=== PATIENT | female | born 1975 | race Two or more races ===

== ENCOUNTER → 2017-08-13 06:38 | Outpatient (CLI) | payer OTHER ==
[~2017-08-13 06:38] MED LIST: AMBIEN10 MG PO; ANAPROX275 MG PO; BENZONATATE100 MG PO; CATAFLAM50 MG PO; CEFTIN250 MG PO; COUMADIN4 MG; DECADRON P4 MG/ML-30 IH; FLONASE16 GM NS; FOLIC ACID1 MG; FOLIC ACID1 MG PO; GILTUSS TR TAB1 EACH PO; IMODIUM A-D2 MG PO; KETO10TA2 PO; LASIX20 MG PO; LODINE200 MG PO; LODINE500 MG PO; LOTRISONE CREAM45 GM TP; MOM30 ML PO; NEURONTIN300 MG PO; ORPH100T PO; PANTOPRAZOLE SO40 MG PO; PEPCID40 MG PO; PREDNISONE10 MG PO; PRINIVIL10 MG; PYRIDIUM DS200 MG PO; ROBAXIN-750750 MG PO; ROBAXIN500 MG PO; SYNTHROID200 MCG; SYNTHROID200 MCG PO; TOPROL 25 MG PO; TOPROL XL25 MG PO; TOPROL XL50 M1 PO; TORADOL60 MG IM; TRAMADOL HCL-AP1 TAB PO; Tussi-Organidin Dm-S PO; ULTRACET PO; URIN D.S. TABLE1 TAB PO; VOLTAREM PO; XOPENEX0.63 MG/3 IH; ZANTAC300 MG PO; ZOCOR20 MG PO; ZOFRAN4 MG PO; ZYRTEC10 MG PO
== END | disposition home or self-care (01) ==
LOC: LAB 06:38
DX: G96.0 Cerebrospinal fluid leak (principal)

== ENCOUNTER 2017-08-17 07:26 | Outpatient (CLI) | payer OTHER | END 2017-08-17 07:33 | disposition home or self-care (01) | LOC: RAD 07:26 | DX: G96.0 Cerebrospinal fluid leak (principal) ==

== ENCOUNTER 2017-08-17 08:13 | Outpatient (CLI) | payer OTHER | END 2017-08-17 08:19 | disposition home or self-care (01) | LOC: LAB 08:13 | DX: G96.0 Cerebrospinal fluid leak (principal) ==

== ENCOUNTER 2017-08-24 19:03 | Emergency (ER) | payer OTHER ==
[~2017-08-24] VITALS: Ht 162.6 cm; Wt 77.1 kg
== END 2017-08-24 22:09 | disposition home or self-care (01) ==
LOC: ER 19:03
DX: J11.1 Influenza due to unidentified influenza virus with other respiratory manifestations (principal)

== ENCOUNTER 2017-08-27 10:54 | Inpatient (IN) | payer OTHER ==
[~2017-08-27] VITALS: Ht 160 cm; Wt 83.9 kg
[2017-09-07] MEDS ORDERED: PREDNISONE10 MG PO ×2 (11:34)
[2017-09-07] MEDS ORDERED: ZOLPIDEM TARTRA10 MG PO (11:34)
[2017-09-07] MEDS ORDERED: Pulmicort 0.5 MG/2 M IH (11:34)
[2017-09-07] MEDS ORDERED: Theo-24 PO (11:34)
[2017-09-07] MEDS ORDERED: BUDEO.25 IH (11:34)
[2017-09-07] MEDS ORDERED: NEBUSAL4 ML IH (11:34)
[2017-09-07] MEDS ORDERED: XOPENEX0.63 MG/3 IH (11:34)
[2017-09-07] MEDS ORDERED: MONTELUKAST SOD10 MG PO (11:34)
== END 2017-09-07 12:56 | disposition home or self-care (01) | DRG 202 ==
LOC: ER 10:54 → SEC-K 16:51 → SURG 16:51
PROC: 3E0F7GC Introduction of Other Therapeutic Substance into Respiratory Tract, Via Natural or Artificial Opening (ICD-10-PCS; principal; 2017-08-27)
PROC: 4A033R1 Measurement of Arterial Saturation, Peripheral, Percutaneous Approach (ICD-10-PCS; 2017-08-27)
PROC: BW24ZZZ Computerized Tomography (CT Scan) of Chest and Abdomen (ICD-10-PCS; 2017-08-27)
DX: J45.32 Mild persistent asthma with status asthmaticus (principal); G96.0 Cerebrospinal fluid leak; J09.X2 Influenza due to identified novel influenza A virus with other respiratory manifestations; J20.9 Acute bronchitis, unspecified; E03.8 Other specified hypothyroidism; I11.0 Hypertensive heart disease with heart failure; I50.9 Heart failure, unspecified

== ENCOUNTER → 2017-09-24 11:15 | Outpatient (CLI) | payer OTHER ==
[~2017-09-24 11:15] MED LIST changes: +BUDEO.25 IH; +MONTELUKAST SOD10 MG PO; +NEBUSAL4 ML IH; +Pulmicort 0.5 MG/2 M IH; +Theo-24 PO; +ZOLPIDEM TARTRA10 MG PO
== END | disposition home or self-care (01) ==
LOC: LAB 11:15
DX: D64.9 Anemia, unspecified (principal); R10.9 Unspecified abdominal pain; E03.8 Other specified hypothyroidism; E78.4 Other hyperlipidemia; R80.9 Proteinuria, unspecified; E11.9 Type 2 diabetes mellitus without complications; R73.09 Other abnormal glucose

== ENCOUNTER → 2017-11-19 | Outpatient (CLI) | payer OTHER | END | disposition home or self-care (01) | LOC: NUCLEAR 09:46 | DX: G45.0 Vertebro-basilar artery syndrome (principal); G93.2 Benign intracranial hypertension; R51 Headache; G40.909 Epilepsy, unspecified, not intractable, without status epilepticus ==

== ENCOUNTER 2017-12-04 07:17 | Outpatient (CLI) | payer OTHER ==
[~2017-12-04 07:17] MED LIST changes: -SYNTHROID50 MCG PO
[2017-12-04] MEDS ORDERED: SYNTHROID50 MCG PO (09:00)
== END 2017-12-04 09:21 | disposition home or self-care (01) ==
LOC: LAB 07:17
DX: E03.8 Other specified hypothyroidism (principal); D51.1 Vitamin B12 deficiency anemia due to selective vitamin B12 malabsorption with proteinuria; K91.2 Postsurgical malabsorption, not elsewhere classified; E89.0 Postprocedural hypothyroidism; I48.2 Chronic atrial fibrillation; Z86.711 Personal history of pulmonary embolism; Z98.84 Bariatric surgery status; I10 Essential (primary) hypertension; D50.8 Other iron deficiency anemias; D51.8 Other vitamin B12 deficiency anemias; D55.0 Anemia due to glucose-6-phosphate dehydrogenase [G6PD] deficiency; D51.0 Vitamin B12 deficiency anemia due to intrinsic factor deficiency; E03.4 Atrophy of thyroid (acquired); E06.2 Chronic thyroiditis with transient thyrotoxicosis

== ENCOUNTER 2017-12-04 09:42 | Outpatient (CLI) | payer OTHER ==
[~2017-12-04 09:42] MED LIST changes: +SYNTHROID50 MCG PO
== END 2017-12-04 11:20 | disposition home or self-care (01) ==
LOC: RAD 09:42
DX: M25.512 Pain in left shoulder (principal)

== ENCOUNTER → 2017-12-04 | Outpatient (CLI) | payer OTHER ==
[~2017-12-04] MED LIST changes: +SYNTHROID50 MCG PO
== END | disposition home or self-care (01) ==
LOC: PPHC 08:22
DX: M25.512 Pain in left shoulder (principal)

== ENCOUNTER 2018-01-22 08:03 | Outpatient (CLI) | payer OTHER | END 2018-01-22 13:44 | disposition home or self-care (01) | LOC: LAB 08:03 | DX: E03.8 Other specified hypothyroidism (principal); H20.13 Chronic iridocyclitis, bilateral ==

== ENCOUNTER 2018-01-24 10:28 | Outpatient (CLI) | payer OTHER ==
[~2018-01-24] VITALS: Ht 152.4 cm; Wt 83.9 kg
== END 2018-01-24 10:45 | disposition home or self-care (01) ==
LOC: OFIC 805 10:28
DX: G96.0 Cerebrospinal fluid leak (principal); R42 Dizziness and giddiness

== ENCOUNTER 2018-02-04 07:00 | Day surgery (SDC) | payer OTHER | END 2018-02-04 13:00 | disposition home or self-care (01) | LOC: CIR.AMB 07:00 | DX: G44.311 Acute post-traumatic headache, intractable (principal) ==

== ENCOUNTER 2018-05-09 10:14 | Outpatient (CLI) | payer OTHER | END 2018-05-09 10:15 | disposition home or self-care (01) | LOC: LAB 10:14 | DX: I10 Essential (primary) hypertension (principal); E03.8 Other specified hypothyroidism ==

== ENCOUNTER 2018-06-01 10:04 | Outpatient (CLI) | payer OTHER | END 2018-06-01 10:13 | disposition home or self-care (01) | LOC: NUCLEAR 10:04 | DX: R06.09 Other forms of dyspnea (principal); I35.1 Nonrheumatic aortic (valve) insufficiency ==

== ENCOUNTER 2018-06-10 19:04 | Emergency (ER) | payer OTHER ==
[~2018-06-10] VITALS: Ht 160 cm; Wt 86.2 kg
== END 2018-06-10 21:24 | disposition home or self-care (01) ==
LOC: ER 19:04
DX: R07.89 Other chest pain (principal); M94.0 Chondrocostal junction syndrome [Tietze]; R00.0 Tachycardia, unspecified

== ENCOUNTER 2018-07-13 07:49 | Outpatient (CLI) | payer OTHER | END 2018-07-13 08:15 | disposition home or self-care (01) | LOC: LAB 07:49 | DX: D51.1 Vitamin B12 deficiency anemia due to selective vitamin B12 malabsorption with proteinuria (principal); K91.2 Postsurgical malabsorption, not elsewhere classified; E89.0 Postprocedural hypothyroidism; I48.2 Chronic atrial fibrillation; Z86.711 Personal history of pulmonary embolism; Z98.84 Bariatric surgery status; I10 Essential (primary) hypertension; D50.8 Other iron deficiency anemias; D51.8 Other vitamin B12 deficiency anemias ==

== ENCOUNTER 2018-08-18 10:37 | Outpatient (CLI) | payer OTHER | END 2018-08-19 09:33 | disposition home or self-care (01) | LOC: RAD 10:37 | DX: S80.911A Unspecified superficial injury of right knee, initial encounter (principal) ==

== ENCOUNTER 2018-08-19 10:12 | Outpatient (CLI) | payer OTHER | END 2018-08-19 10:29 | disposition home or self-care (01) | LOC: LAB 10:12 | DX: D64.89 Other specified anemias (principal); R10.9 Unspecified abdominal pain; I50.32 Chronic diastolic (congestive) heart failure; R80.8 Other proteinuria ==

== ENCOUNTER 2018-08-19 11:30 | Outpatient (CLI) | payer OTHER | END 2018-08-19 11:32 | disposition home or self-care (01) | LOC: MAMO-SONO 11:30 | DX: N60.11 Diffuse cystic mastopathy of right breast (principal); N60.12 Diffuse cystic mastopathy of left breast; Z12.31 Encounter for screening mammogram for malignant neoplasm of breast ==

== ENCOUNTER 2018-09-28 14:32 | Outpatient (CLI) | payer OTHER | END 2018-09-28 15:00 | disposition home or self-care (01) | LOC: LAB 14:32 | DX: E03.8 Other specified hypothyroidism (principal); J06.9 Acute upper respiratory infection, unspecified ==

== ENCOUNTER 2018-12-18 17:21 | Emergency (ER) | payer OTHER ==
[~2018-12-18] VITALS: Ht 160 cm; Wt 83.9 kg
== END 2018-12-18 19:58 | disposition home or self-care (01) ==
LOC: ER 17:21
DX: S01.82XA Laceration with foreign body of other part of head, initial encounter (principal); W18.09XA Striking against other object with subsequent fall, initial encounter; Y93.89 Activity, other specified; Y92.098 Other place in other non-institutional residence as the place of occurrence of the external cause; Y99.8 Other external cause status

== ENCOUNTER → 2018-12-24 | Emergency (ER) | payer OTHER ==
[~2018-12-24] VITALS: Ht 160 cm; Wt 60.8 kg
== END | disposition left against medical advice (07) ==
LOC: ER 16:42
DX: Z53.20 Procedure and treatment not carried out because of patient's decision for unspecified reasons (principal)

== ENCOUNTER 2018-12-31 01:24 | Emergency (ER) | payer OTHER ==
[~2018-12-31] VITALS: Ht 160 cm; Wt 86.2 kg
[2018-12-31] MEDS ORDERED: DIAMOX (01:41)
== END 2018-12-31 10:45 | disposition home or self-care (01) ==
LOC: ER 01:24
DX: R42 Dizziness and giddiness (principal); R51 Headache; G89.11 Acute pain due to trauma; L08.89 Other specified local infections of the skin and subcutaneous tissue

== ENCOUNTER 2019-01-16 12:37 | Outpatient (CLI) | payer OTHER ==
[~2019-01-16] VITALS: Ht 152.4 cm; Wt 89.8 kg
[~2019-01-16 12:37] MED LIST changes: +DIAMOX
== END 2019-01-16 13:00 | disposition home or self-care (01) ==
LOC: OFIC 805 12:37
DX: G96.0 Cerebrospinal fluid leak (principal); J34.89 Other specified disorders of nose and nasal sinuses; H81.49 Vertigo of central origin, unspecified ear; R09.81 Nasal congestion

== ENCOUNTER 2019-01-21 09:25 | Outpatient (CLI) | payer OTHER | END 2019-01-21 14:42 | disposition home or self-care (01) | LOC: LAB 09:25 | DX: E03.8 Other specified hypothyroidism (principal); I10 Essential (primary) hypertension; E78.49 Other hyperlipidemia; I50.20 Unspecified systolic (congestive) heart failure; Q24.4 Congenital subaortic stenosis; H81.10 Benign paroxysmal vertigo, unspecified ear ==

== ENCOUNTER 2019-01-30 07:07 | Outpatient (CLI) | payer OTHER | END 2019-01-30 07:16 | disposition home or self-care (01) | LOC: NUCLEAR 07:07 | DX: I35.1 Nonrheumatic aortic (valve) insufficiency (principal) ==

== ENCOUNTER → 2019-02-10 | Outpatient (CLI) | payer OTHER | END | disposition home or self-care (01) | LOC: SONOGRAMA 13:01 → MAMO-SONO 13:45 | DX: R10.2 Pelvic and perineal pain (principal) ==

== ENCOUNTER 2019-02-11 15:04 | Emergency (ER) | payer OTHER ==
[~2019-02-11] VITALS: Ht 160 cm; Wt 86.2 kg
== END 2019-02-11 19:07 | disposition home or self-care (01) ==
LOC: ER 15:04
DX: S80.01XA Contusion of right knee, initial encounter (principal); S30.0XXA Contusion of lower back and pelvis, initial encounter; S40.011A Contusion of right shoulder, initial encounter; S80.02XA Contusion of left knee, initial encounter; S00.83XA Contusion of other part of head, initial encounter; S20.01XA Contusion of right breast, initial encounter; V49.9XXA Car occupant (driver) (passenger) injured in unspecified traffic accident, initial encounter; Y93.89 Activity, other specified; Y92.488 Other paved roadways as the place of occurrence of the external cause; Y99.8 Other external cause status

== ENCOUNTER 2019-02-15 06:08 | Outpatient (CLI) | payer OTHER | END 2019-02-15 06:14 | disposition home or self-care (01) | LOC: LAB 06:08 | DX: I10 Essential (primary) hypertension (principal); E78.49 Other hyperlipidemia; Z00.00 Encounter for general adult medical examination without abnormal findings; R42 Dizziness and giddiness ==

== ENCOUNTER 2019-02-20 09:57 | Outpatient (CLI) | payer OTHER ==
[~2019-02-20] VITALS: Ht 152.4 cm; Wt 72.6 kg
== END 2019-02-20 10:15 | disposition home or self-care (01) ==
LOC: OFIC 805 09:57
DX: H81.49 Vertigo of central origin, unspecified ear (principal); G96.0 Cerebrospinal fluid leak

== ENCOUNTER 2019-03-16 08:38 | Outpatient (CLI) | payer OTHER ==
[~2019-03-16] VITALS: Ht 152.4 cm; Wt 72.6 kg
== END 2019-03-16 09:31 | disposition home or self-care (01) ==
LOC: OFIC 805 08:38
DX: H81.49 Vertigo of central origin, unspecified ear (principal); H81.13 Benign paroxysmal vertigo, bilateral

== ENCOUNTER 2019-04-05 18:47 | Outpatient (CLI) | payer OTHER | END 2019-04-05 19:42 | disposition home or self-care (01) | LOC: LAB 18:47 | DX: E03.8 Other specified hypothyroidism (principal) ==

== ENCOUNTER 2019-04-16 23:03 | Emergency (ER) | payer OTHER ==
[~2019-04-16] VITALS: Ht 160 cm; Wt 86.2 kg
[2019-04-17] MEDS ORDERED: NORFLEX100MG PO (03:34)
[2019-04-17] MEDS ORDERED: KETO10TA2 PO (03:34)
== END 2019-04-17 03:42 ==
LOC: ER 23:03
DX: M25.512 Pain in left shoulder (principal); G89.11 Acute pain due to trauma; R51 Headache; R11.10 Vomiting, unspecified

== ENCOUNTER 2019-05-08 11:31 | Outpatient (CLI) | payer OTHER ==
[~2019-05-08 11:31] MED LIST changes: +NORFLEX100MG PO
== END 2019-05-08 11:56 | disposition home or self-care (01) ==
LOC: NUCLEAR 11:31
DX: R55 Syncope and collapse (principal)

== ENCOUNTER 2019-05-24 17:00 | Outpatient (CLI) | payer OTHER | END 2019-05-24 18:00 | disposition home or self-care (01) | LOC: LAB 17:00 | DX: J11.1 Influenza due to unidentified influenza virus with other respiratory manifestations (principal); J20.0 Acute bronchitis due to Mycoplasma pneumoniae ==

== ENCOUNTER 2019-07-24 09:35 | Emergency (ER) | payer OTHER ==
[~2019-07-24] VITALS: Ht 160 cm; Wt 86.2 kg
== END 2019-07-24 12:31 | disposition home or self-care (01) ==
LOC: ER 09:35
DX: S50.01XA Contusion of right elbow, initial encounter (principal); W18.09XA Striking against other object with subsequent fall, initial encounter; Y93.E8 Activity, other personal hygiene; Y92.091 Bathroom in other non-institutional residence as the place of occurrence of the external cause; Y99.8 Other external cause status

== ENCOUNTER 2019-07-27 10:09 | Outpatient (CLI) | payer OTHER | END 2019-07-27 10:14 | disposition home or self-care (01) | LOC: LAB 10:09 | DX: J11.1 Influenza due to unidentified influenza virus with other respiratory manifestations (principal) ==

== ENCOUNTER 2019-10-22 11:00 | Inpatient (IN) | payer OTHER ==
[~2019-10-22] VITALS: Ht 91.4 cm; Wt 5.0 kg
== END 2019-10-27 17:00 | disposition home or self-care (01) | DRG 203 ==
LOC: ER 11:00 → MEDJ 23:14
PROVIDERS: ADMIT Internal Medicine
PROC: 3E0F7GC Introduction of Other Therapeutic Substance into Respiratory Tract, Via Natural or Artificial Opening (ICD-10-PCS; principal; 2019-10-22)
DX: J45.901 Unspecified asthma with (acute) exacerbation (principal); J45.902 Unspecified asthma with status asthmaticus

== ENCOUNTER 2019-12-30 09:56 | Outpatient (CLI) | payer OTHER | END 2019-12-30 10:02 | disposition home or self-care (01) | LOC: LAB 09:56 | DX: E03.8 Other specified hypothyroidism (principal) ==

== ENCOUNTER 2020-02-17 16:58 | Emergency (ER) | payer OTHER | END 2020-02-17 22:27 | disposition home or self-care (01) | LOC: ER 16:58 | DX: S13.8XXA Sprain of joints and ligaments of other parts of neck, initial encounter (principal); S40.011A Contusion of right shoulder, initial encounter; S50.11XA Contusion of right forearm, initial encounter; S80.02XA Contusion of left knee, initial encounter; S80.01XA Contusion of right knee, initial encounter; S00.83XA Contusion of other part of head, initial encounter; R07.89 Other chest pain; M54.5 Low back pain; V43.92XA Unspecified car occupant injured in collision with other type car in traffic accident, initial encounter; Y93.89 Activity, other specified; Y92.488 Other paved roadways as the place of occurrence of the external cause; Y99.8 Other external cause status ==

== ENCOUNTER 2020-03-20 10:35 | Outpatient (CLI) | payer OTHER | END 2020-03-20 15:00 | disposition home or self-care (01) | LOC: LAB 10:35 | PROVIDERS: ATTEND Internal Medicine Endocrinology, Diabetes & Metabolism | DX: E03.8 Other specified hypothyroidism (principal) ==

== ENCOUNTER 2020-04-17 09:34 | Outpatient (CLI) | payer OTHER | END 2020-04-17 09:40 | disposition home or self-care (01) | LOC: LAB 09:34 | PROVIDERS: ATTEND Internal Medicine | DX: E03.8 Other specified hypothyroidism (principal); I10 Essential (primary) hypertension; E78.89 Other lipoprotein metabolism disorders; R73.09 Other abnormal glucose; Z12.11 Encounter for screening for malignant neoplasm of colon; E55.9 Vitamin D deficiency, unspecified ==

== ENCOUNTER 2020-04-19 08:12 | Outpatient (CLI) | payer OTHER | END 2020-04-19 08:23 | disposition home or self-care (01) | LOC: RAD 08:12 → MAMO-SONO 08:45 | PROVIDERS: ATTEND Internal Medicine | DX: N64.4 Mastodynia (principal); Z12.31 Encounter for screening mammogram for malignant neoplasm of breast; M25.521 Pain in right elbow; M25.512 Pain in left shoulder ==

== ENCOUNTER 2020-04-19 09:55 | Outpatient (CLI) | payer OTHER | END 2020-04-19 10:05 | disposition home or self-care (01) | LOC: LAB 09:55 | PROVIDERS: ATTEND Internal Medicine | DX: I10 Essential (primary) hypertension (principal); E78.89 Other lipoprotein metabolism disorders; E03.8 Other specified hypothyroidism; R73.09 Other abnormal glucose; Z12.11 Encounter for screening for malignant neoplasm of colon; E55.9 Vitamin D deficiency, unspecified; Z20.828 Contact with and (suspected) exposure to other viral communicable diseases ==

== ENCOUNTER 2020-05-07 07:47 | Outpatient (CLI) | payer OTHER | END 2020-05-07 08:04 | disposition home or self-care (01) | LOC: NUCLEAR 07:47 | PROVIDERS: ATTEND Internal Medicine | DX: I11.9 Hypertensive heart disease without heart failure (principal); M81.0 Age-related osteoporosis without current pathological fracture ==

== ENCOUNTER 2020-05-13 14:40 | Emergency (ER) | payer OTHER ==
[~2020-05-13] VITALS: Ht 160 cm; Wt 86.2 kg
[2020-05-13] MEDS ORDERED: SYNTHROID175 MCG (16:27)
[2020-05-13] MEDS ORDERED: TOPROL XL50 M1 (16:28)
[2020-05-13] MEDS ORDERED: SYNTHROID150 MCG (16:28)
[2020-05-13] MEDS ORDERED: AMBIEN CR6.25 MG (16:29)
[2020-05-13] MEDS ORDERED: PROZAC20 MG (16:29)
[2020-05-13] MEDS ORDERED: CLONAZEPAM1 M1 (16:29)
== END 2020-05-13 21:40 | disposition home or self-care (01) ==
LOC: ER 14:40
DX: R42 Dizziness and giddiness (principal); R51 Headache; R11.0 Nausea; T38.1X5A Adverse effect of thyroid hormones and substitutes, initial encounter; Y92.89 Other specified places as the place of occurrence of the external cause

== ENCOUNTER 2020-05-17 11:02 | Outpatient (CLI) | payer OTHER ==
[~2020-05-17 11:02] MED LIST changes: +AMBIEN CR6.25 MG; +CLONAZEPAM1 M1; +PROZAC20 MG; +SYNTHROID150 MCG; +SYNTHROID175 MCG; +TOPROL XL50 M1
== END 2020-05-17 11:06 | disposition home or self-care (01) ==
LOC: RAD 11:02
PROVIDERS: ATTEND Obstetrics & Gynecology
DX: R05 Cough (principal)

== ENCOUNTER 2020-06-03 09:39 | Outpatient (CLI) | payer OTHER | END 2020-06-03 10:13 | disposition home or self-care (01) | LOC: MRI 09:39 | PROVIDERS: ATTEND Orthopaedic Surgery | DX: M75.122 Complete rotator cuff tear or rupture of left shoulder, not specified as traumatic (principal) | CPT/HCPCS: 73221 ==

== ENCOUNTER 2020-06-17 17:32 | Emergency (ER) | payer OTHER ==
[~2020-06-17] VITALS: Ht 160 cm; Wt 93.0 kg
== END 2020-06-17 22:19 | disposition home or self-care (01) ==
LOC: ER 17:32 → CPU-OBS 17:47 → ER 22:19
DX: R25.2 Cramp and spasm (principal); Z03.818 Encounter for observation for suspected exposure to other biological agents ruled out; R53.1 Weakness; R47.81 Slurred speech

== ENCOUNTER → 2020-07-16 10:59 | Outpatient (CLI) | payer OTHER | END | disposition home or self-care (01) | LOC: LAB 10:59 | PROVIDERS: ATTEND Internal Medicine | DX: Z20.828 Contact with and (suspected) exposure to other viral communicable diseases (principal); I10 Essential (primary) hypertension; E78.89 Other lipoprotein metabolism disorders; E03.8 Other specified hypothyroidism; R73.09 Other abnormal glucose; Z12.11 Encounter for screening for malignant neoplasm of colon; E55.9 Vitamin D deficiency, unspecified ==

== ENCOUNTER 2020-07-29 10:04 | Outpatient (CLI) | payer OTHER | END 2020-07-29 10:12 | disposition home or self-care (01) | LOC: LAB 10:04 | PROVIDERS: ATTEND Internal Medicine | DX: E03.8 Other specified hypothyroidism (principal); Z20.828 Contact with and (suspected) exposure to other viral communicable diseases; I10 Essential (primary) hypertension; E78.89 Other lipoprotein metabolism disorders; R73.09 Other abnormal glucose; Z12.11 Encounter for screening for malignant neoplasm of colon; E55.9 Vitamin D deficiency, unspecified ==

== ENCOUNTER 2020-08-19 09:42 | Outpatient (CLI) | payer OTHER | END 2020-08-19 10:44 | disposition home or self-care (01) | LOC: OFIC 805 09:42 | PROVIDERS: ATTEND Otolaryngology | DX: R42 Dizziness and giddiness (principal); S09.8XXA Other specified injuries of head, initial encounter; G96.08 Other cranial cerebrospinal fluid leak; G96.81 Intracranial hypotension ==

== ENCOUNTER 2020-09-19 09:45 | Outpatient (CLI) | payer OTHER | END 2020-09-19 09:55 | disposition home or self-care (01) | LOC: LAB 09:45 | PROVIDERS: ATTEND Otolaryngology | DX: N20.0 Calculus of kidney (principal) ==

== ENCOUNTER 2020-09-19 10:27 | Outpatient (CLI) | payer OTHER | END 2020-09-19 10:44 | disposition home or self-care (01) | LOC: TOM 10:27 | PROVIDERS: ATTEND Surgery | DX: K76.0 Fatty (change of) liver, not elsewhere classified (principal); G96.00 Cerebrospinal fluid leak, unspecified; K57.32 Diverticulitis of large intestine without perforation or abscess without bleeding | CPT/HCPCS: 70486; 74177; Q9965 ==

== ENCOUNTER 2020-09-22 00:35 | Emergency (ER) | payer OTHER ==
[~2020-09-22] VITALS: Ht 160 cm; Wt 95.3 kg
[2020-09-22] MEDS ORDERED: ACETAMINOPHEN500 M1 PO (06:28)
[2020-09-22] MEDS ORDERED: SKELAXIN800 MG PO (06:28)
== END 2020-09-22 06:32 | disposition home or self-care (01) ==
LOC: ER 00:35
DX: S00.83XA Contusion of other part of head, initial encounter (principal); S80.02XA Contusion of left knee, initial encounter; S80.01XA Contusion of right knee, initial encounter; S50.02XA Contusion of left elbow, initial encounter; S30.0XXA Contusion of lower back and pelvis, initial encounter; W01.198A Fall on same level from slipping, tripping and stumbling with subsequent striking against other object, initial encounter; Y93.89 Activity, other specified; Y92.012 Bathroom of single-family (private) house as the place of occurrence of the external cause; Y99.8 Other external cause status

== ENCOUNTER 2020-09-26 07:47 | Outpatient (CLI) | payer OTHER ==
[~2020-09-26 07:47] MED LIST changes: +ACETAMINOPHEN500 M1 PO; +SKELAXIN800 MG PO
== END 2020-09-26 07:58 | disposition home or self-care (01) ==
LOC: MRI 07:47
PROVIDERS: ATTEND Orthopaedic Surgery
DX: M17.12 Unilateral primary osteoarthritis, left knee (principal); M25.562 Pain in left knee; S83.242A Other tear of medial meniscus, current injury, left knee, initial encounter; M25.462 Effusion, left knee
CPT/HCPCS: 73718

== ENCOUNTER → 2020-11-09 09:21 | Outpatient (CLI) | payer OTHER | END | disposition home or self-care (01) | LOC: LAB 09:21 | PROVIDERS: ATTEND Internal Medicine | DX: Z03.818 Encounter for observation for suspected exposure to other biological agents ruled out (principal); R10.84 Generalized abdominal pain; E03.8 Other specified hypothyroidism; D64.89 Other specified anemias; E78.2 Mixed hyperlipidemia ==

== ENCOUNTER → 2021-01-01 11:49 | Outpatient (CLI) | payer OTHER | END | disposition home or self-care (01) | LOC: LAB 11:49 | PROVIDERS: ATTEND Internal Medicine | DX: I71.2 Thoracic aortic aneurysm, without rupture (principal); E21.3 Hyperparathyroidism, unspecified; I10 Essential (primary) hypertension; E03.8 Other specified hypothyroidism; D64.89 Other specified anemias; N39.0 Urinary tract infection, site not specified; B95.7 Other staphylococcus as the cause of diseases classified elsewhere ==

== ENCOUNTER 2021-01-10 07:37 | Outpatient (CLI) | payer OTHER | END 2021-01-10 08:04 | disposition home or self-care (01) | LOC: TOM 07:37 | PROVIDERS: ATTEND Internal Medicine | DX: I71.2 Thoracic aortic aneurysm, without rupture (principal); E04.1 Nontoxic single thyroid nodule; Z01.419 Encounter for gynecological examination (general) (routine) without abnormal findings; N64.4 Mastodynia; Z11.3 Encounter for screening for infections with a predominantly sexual mode of transmission; D25.9 Leiomyoma of uterus, unspecified; E03.8 Other specified hypothyroidism | CPT/HCPCS: 71260; 76536; 76830; Q9965 ==

== ENCOUNTER 2021-01-23 13:50 | Outpatient (CLI) | payer OTHER | END 2021-01-23 13:51 | disposition home or self-care (01) | LOC: LAB 13:50 | PROVIDERS: ATTEND Obstetrics & Gynecology | DX: R97.8 Other abnormal tumor markers (principal); B00.89 Other herpesviral infection; N83.201 Unspecified ovarian cyst, right side; R10.2 Pelvic and perineal pain; D25.1 Intramural leiomyoma of uterus; N91.5 Oligomenorrhea, unspecified; E53.8 Deficiency of other specified B group vitamins ==

== ENCOUNTER 2021-01-28 12:51 | Outpatient (CLI) | payer OTHER | END 2021-01-28 12:53 | disposition home or self-care (01) | LOC: LAB 12:51 | PROVIDERS: ATTEND Internal Medicine | DX: N39.0 Urinary tract infection, site not specified (principal) ==

== ENCOUNTER → 2021-02-27 07:21 | Outpatient (CLI) | payer OTHER | END | disposition home or self-care (01) | LOC: LAB 07:21 | PROVIDERS: ATTEND Internal Medicine Endocrinology, Diabetes & Metabolism | DX: I10 Essential (primary) hypertension (principal); E78.2 Mixed hyperlipidemia; E21.2 Other hyperparathyroidism; D64.89 Other specified anemias; N39.0 Urinary tract infection, site not specified; R10.84 Generalized abdominal pain; E03.8 Other specified hypothyroidism; E55.9 Vitamin D deficiency, unspecified; R80.8 Other proteinuria; Z12.11 Encounter for screening for malignant neoplasm of colon; Z79.01 Long term (current) use of anticoagulants ==